=== PATIENT | female | born 1965 | race Asian ===

== ENCOUNTER 2016-10-06 23:58 | Emergency (ER) | payer MEDICAID, OTHER ==
[2016-10-07 00:09] VITALS: BP 113/52; PULSE 66; RESP 16; TEMP 97.9; O2SAT 97
[2016-10-07] MEDS ORDERED: CEPHALEXIN 500MG PREPACK#4 BTL TAKEHOME ONE (00:32)
--- NOTE | 2016-10-07 00:35 | EDPHY ---
H & P Time Seen by Provider: 10/07/16 00:07 HPI/ROS: CHIEF COMPLAINT: Foot complaint HISTORY OF PRESENT ILLNESS: 51-year-old female presents emergency department complaining of increasing right foot pain. Patient had a were removed on the bottom of her right foot 1 week ago. She reports 2 days ago she developed mild pain that has progressed. She reports redness and swelling that she noticed today. She denies fevers or chills, no numbness or tingling to her foot, no nausea or vomiting. Smoking Status: Never smoked Physical Exam: GEN: Awake, alert, oriented, no acute distress RESP: nl resp effort MSK: Right foot and ankle with full range of motion, 2+ pedal pulses, sensation intact to light touch SKIN: Quarter-size area to arch of foot with good granulation tissue, surrounding erythema, mild swelling and tenderness to palpation, no lymphangitic streaking Constitutional: Initial Vital Signs Temperature (C) 36.6 C 10/07/16 00:00 Heart Rate 66 10/07/16 00:00 Respiratory Rate 16 10/07/16 00:00 Blood Pressure 113/52 L 10/07/16 00:00 O2 Sat (%) 97 10/07/16 00:00 O2 Delivery Mode Room Air Allergies/Adverse Reactions: No Known Allergies Allergy (Unverified 10/07/16 00:05) Home Medications: Medication Instructions Recorded Cephalexin [Keflex] 500 mg PO QID 5 Days 10/07/16 MDM/Departure - [facility] ED Course/Re-evaluation: 51-year-old female presents with cellulitis to her right foot after a were removal 1 week ago. Patient will be placed on a course of Keflex. She is nontoxic appearing, afebrile, no evidence of septic joint. Patient has a follow -up appointment with her primary care doctor on Sunday. She is given return precautions for worsening symptoms, new symptoms or concerns. - Depart Disposition: Home, Routine, Self-Care Clinical Impression: Cellulitis of right foot Condition: Good Instructions: Cellulitis (ED), Cephalexin (By mouth) Additional Instructions: Rest, elevate your foot. Wash daily gently with soap and water, let dry, place petroleum ointment and bandage. Take your antibiotics 4 times per day for 5 days. Follow-up with your primary care doctor on Sunday as scheduled for re- evaluation. Return to the emergency department for worsening symptoms, new symptoms or concerns. Prescriptions: Cephalexin [Keflex] 500 mg PO QID 5 Days Referrals: Nayla Gregory MD [Primary Care Provider] - As per Instructions
== END 2016-10-07 00:54 | disposition home or self-care (01) ==
DX: L03.115 Cellulitis of right lower limb (principal)